=== PATIENT | female | born 1995 | race African-American/Black ===

== ENCOUNTER 2022-07-10 10:21 | Emergency (ER) | payer BC, SELFPAY ==
[2022-07-10 10:32] VITALS: BP 127/88; PULSE 84; RESP 18; TEMP 36.8; O2SAT 100
[2022-07-10 11:13] VITALS: RESP 16; O2SAT 100
[2022-07-10 12:08] LABS: Influenza A QL RT-PCR Negative (Negative); Influenza B QL RT-PCR Negative (Negative); SARS-CoV-2 RNA PCR Negative
--- NOTE | 2022-07-10 12:29 | ED.URI ---
HPI - URI/Sore Throat General Chief Complaint: Upper Respiratory Infection Stated Complaint: shortness of breath, dry cough for 3 days Time Seen by Provider: 07/10/22 11:08 Source: patient Mode of arrival: ambulatory Limitations: no limitations History of Present Illness HPI Narrative: This is a 27-year-old female that presents to the emergency department for cold symptoms present over the last couple of days. Reports chills, fatigue, cough, congestion, and rhinorrhea. Denies fever, or shortness of breath. Related Data Allergies Allergy/AdvReac Type Severity Reaction Status Date / Time No Known Allergies Allergy Verified 07/10/22 11:04 Review of Systems Review of Systems: CONSTITUTIONAL: Reports chills. Denies fever ENT: Reports rhinorrhea, congestion. Denies sore throat, or otalgia. CARDIOVASCULAR: Denies chest pain, or edema. RESPIRATORY: Reports cough All systems reviewed & are unremarkable except as noted in HPI and below PMFSH Past Medical History Medical History (Updated 07/10/22 @ 12:33 by Avis Joiner PA-C) No active medical problems Social History Social History (Updated 07/10/22 @ 12:33 by Avis Joiner PA-C) Substance use: never Exam Narrative: GENERAL: Well-appearing, well-nourished, and in no acute distress. HEAD: Normocephalic, atraumatic. EYES: EOMI. ENT: Nares clear, no rhinorrhea or epistaxis. Mucous membranes moist. Oropharynx without tonsillar hypertrophy exudate or other lesions. Right TM pearly banda non-bulging. Left sided cerumen impaction NECK: Supple. No adenopathy or masses. CHEST: Clear to auscultation. No respiratory distress. No wheezes rales or rhonchi HEART: Regular rate and rhythm. No murmur heard. Normal peripheral pulses. EXTREMITIES: Normal range of motion. No edema. SKIN: Warm, dry, no rash. NEURO: No focal deficits. Alert and oriented x3. PSYCH: Normal mood and affect Course Vital Signs Vital signs: Vital Signs Temperature 98.3 F 07/10/22 10:32 Pulse Rate 84 07/10/22 10:32 Respiratory Rate 18 07/10/22 10:32 Blood Pressure 127/88 07/10/22 10:32 Pulse Oximetry 100 07/10/22 10:32 Oxygen Delivery Room Air 07/10/22 10:32 Temperature 98.3 F 07/10/22 10:32 Pulse Rate 84 07/10/22 10:32 Respiratory Rate 16 07/10/22 11:13 Blood Pressure 127/88 07/10/22 10:32 Pulse Oximetry 100 07/10/22 11:13 Oxygen Delivery Room Air 07/10/22 11:17 MDM - URI/Sore Throat MDM Narrative Medical decision making narrative: Patient presents to the emergency department for cold symptoms ongoing over the last couple of days. Reporting chills, fatigue, and dry cough. She is afebrile and nontoxic-appearing. Lungs are clear on exam. Oxygen saturation is 100% on room air. Influenza and COVID screens are negative. She was instructed on continued care of viral infection. She is to follow-up with her primary care provider. She was given warnings to return to the ER Differential Diagnosis Differential diagnosis: Likely upper respiratory infection, sinusitis, viral infection, bronchitis, influenza and other (covid) Lab Data Attestation: I reviewed the patient's lab results. Labs: Lab Results 07/10/22 Range/Units 11:24 Influenza A (RT-PCR) Negative (Negative) Influenza B (RT-PCR) Negative (Negative) SARS-CoV-2 RNA (RT-PCR) Negative Critical Care Time Critical Care Time Critical Care Time: No Discharge Plan Discharge Clinical Impression: Viral infection Patient Disposition: Home, Self-Care Condition: Stable Instructions: Cold Symptoms (ED) Additional Instructions: Return to the emergency department for worsening symptoms, or any other concerns Remain well-hydrated, get plenty of rest, no work or school for several days. Take Tylenol or Motrin [id number] for pain as needed. Flonase for nasal congestion. Zyrtec for runny nose. Lozenges or Chloraseptic spray for sore throat. Follow up with primary
== END 2022-07-10 12:49 | disposition home or self-care (01) ==
PROVIDERS: Emergency Provider Physician Assistant; PCP Internal Medicine
DX: B34.9 Viral infection, unspecified (principal); Z20.822 Contact with and (suspected) exposure to COVID-19
CPT/HCPCS: 87636; 99283

== ENCOUNTER 2022-12-29 18:05 | Emergency (ER) | payer SELFPAY ==
[2022-12-29 18:20] VITALS: BP 139/64; PULSE 83; RESP 16; TEMP 36.9; O2SAT 99
--- NOTE | 2022-12-29 18:33 | ED.SKABFB ---
HPI - Skin/Abscess/Foreign Bdy General Chief complaint: Skin/Abscess/Foreign Body Stated complaint: Rash Time Seen by Provider: 12/29/22 18:33 Source: patient Mode of arrival: ambulatory Limitations: no limitations History of Present Illness HPI narrative: 27-year-old female presents with complaint of brown circular lesion to right posterior shoulder. Patient reports that yesterday while driving in her car she felt a bump there and thought it was a bug bite because it was itchy. Was itching it while she was driving. Later when she got home and took a shower the area was burning while in the shower. Woke up this morning with a brown color to the circular lesion. Reports that the area is burning . All systems reviewed and negative except as noted above. Related Data Allergies Allergy/AdvReac Type Severity Reaction Status Date / Time No Known Allergies Allergy Verified 12/29/22 18:26 Review of Systems Review of Systems: CONSTITUTIONAL: Denies fever, chills, or sweats. EYES: Denies visual changes, redness, or discharge. ENT: Denies rhinorrhea, congestion, sore throat, or otalgia. CARDIOVASCULAR: Denies chest pain, palpitations, or edema. RESPIRATORY: Denies cough or dyspnea. GASTROINTESTINAL: Denies abdominal pain, nausea, vomiting, or diarrhea. GENITOURINARY: Denies dysuria or hematuria. SKIN: Denies rash or itching. Reports lesion to right posterior shoulder. MUSCULOSKELETAL: Denies back pain, joint pain, or myalgia. NEUROLOGIC: Denies headache, numbness, or weakness. PSYCHIATRIC: Denies anxiety or depression. All other systems reviewed are negative, except as documented in HPI. PMFSH Past Medical History Medical History (Updated 12/29/22 @ 18:40 by Patricia Landis NP) No active medical problems Social History Social History (Updated 07/10/22 @ 12:33 by Avis Joiner PA-C) Substance use: never Comments At time of signature, agree with nursing past medical, surgical, social and family history. There is no relevant family history pertinent to the presenting complaint. Exam Narrative: GENERAL: This is a well-nourished, well-developed patient, in no apparent distress. HEAD: normocephalic, atraumatic. EYES: PERRL. Sclera clear/white. Vision is grossly intact. EARS: External ears normal NOSE: External nose normal NECK: Neck supple, non-tender without lymphadenopathy, masses or thyromegaly. CARDIOVASCULAR: Regular rate and rhythm without murmurs, gallops, or rubs. RESPIRATORY: Clear to auscultation. Breath sounds equal bilaterally. No wheezes, rales, or rhonchi. SKIN: warm, Dry, intact with no suspicious rash, good texture and turgor. there is a scab to right posterior shoulder approximately 2 cm diameter with mild surrounding erythema. No necrosis. No fluctuance or drainage. NEURO: awake, alert, and oriented to person, place and time. There were no obvious focal neurologic abnormalities. EXTREMITIES: No joint tenderness, effusion, or edema noted. Course Course Level of Care: Express Care Visit Vital Signs Vital signs: Vital Signs Temperature 36.9 C 12/29/22 18:20 Pulse Rate 83 12/29/22 18:20 Respiratory Rate 16 12/29/22 18:20 Blood Pressure 139/64 12/29/22 18:20 Pulse Oximetry 99 12/29/22 18:20 Oxygen Delivery Room Air 12/29/22 18:20 Temperature 36.9 C 12/29/22 18:20 Pulse Rate 83 12/29/22 18:20 Respiratory Rate 16 12/29/22 18:20 Blood Pressure 139/64 12/29/22 18:20 Pulse Oximetry 99 12/29/22 18:20 Oxygen Delivery Room Air 12/29/22 18:20 Reviewed MDM - Skin/Abscess/Foreign Bdy MDM Narrative Medical decision making narrative: Patient is aware of diagnosis, understands and agrees to treatment plan. Anticipatory guidance given. Patient agrees to follow-up as directed and is aware of reasons to seek care at the emergency department. Portions of this record may have been created with voice recognition software pt has
== END 2022-12-29 18:45 | disposition home or self-care (01) ==
PROVIDERS: Emergency Provider Nurse Practitioner Family; PCP Internal Medicine
DX: S40.211A Abrasion of right shoulder, initial encounter (principal); X58.XXXA Exposure to other specified factors, initial encounter
CPT/HCPCS: 99213; G0463

== ENCOUNTER 2023-01-07 14:10 | Emergency (ER) | payer SELFPAY ==
[2023-01-07] VITALS (12 sets, daily range): BP systolic 116–153; BP diastolic 66–99; PULSE 68–121; RESP 13–19; TEMP 36.9; O2SAT 100
--- NOTE | ~2023-01-07 | CT_ITS ---
EXAMINATION: CT brain wo con DATE: 01/07/2023 15:08 INDICATION: Head injury one day prior with loss of consciousness and now with dizziness TECHNIQUE: Computed tomography (CT) of the head was performed without intravenous contrast. Sagittal and coronal reconstructions were performed. The mA was adjusted according to patient size. Iterative reconstruction technique was employed. The dose-length product was 529.67 mGy-cm. COMPARISON: None FINDINGS: No fracture. No acute intracranial hemorrhage, acute infarction or abnormal extra axial fluid collect ion. Ventricles are normal and symmetric. No mass/mass effect. The orbits, paranasal sinuses and mast oid air cells are normal. IMPRESSION: 1. Normal head CT. Reviewed, dictated and finalized at location A. IMPRESSION: 1. Normal head CT.
--- NOTE | 2023-01-07 14:22 | ECG_ITS ---
Measurements Intervals [place] Rate: 90 P: 56 [place]: 137 QRS: 24 QRSD: 86 T: 14 QT: 353 QTc: 433 Interpretive Statements SINUS RHYTHM NONSPECIFIC T-WAVE ABNORMALITY NO PREVIOUS ECG AVAILABLE FOR COMPARISON Electronically Signed On 01-07-2023 14:56:21 CDT by Whit Soto M.D.
[2023-01-07] MEDS: SODIUM CHLORIDE 0.9% IV 1,000 ML 999 ML IV CONT (14:41)
[2023-01-07 14:50] LABS: Basophils Absolute Auto 0.1 K/mm3 (0.0-0.1); Eosinophils Absolute Auto 0.1 K/mm3 (0-0.3); Eosinophils Percent Auto 1.2 % (0-4.4); Hematocrit 35.3 % (37.0-47.0); Hemoglobin 10.5 g/dL (12.0-15.0); Immature Granulocyte Absolute 0.01 K/mm3 (0.00-0.031); Immature Granulocyte Percent A 0.2 % (0-0.5); Lymphocytes Absolute Auto 1.44 K/mm3 (0.9-3.2); Lymphocytes Percent Auto 27.9 % (18.3-44.2); Mean Corpuscular HGB Conc 29.7 g/dl (32-36); Mean Corpuscular Hemoglobin 25.6 pg (26-34); Mean Corpuscular Volume 86.1 fl (80-100); Mean Platelet Volume 10.2 fl (7.4-10.4); Monocytes Absolute Auto 0.3 K/mm3 (0.1-0.6); Monocytes Percent Auto 6.2 % (2.6-8.5); Neutrophils Absolute Auto 3.3 K/mm3 (1.3-6.7); Neutrophils Percent Auto 63.5 % (45.5-73.1); Platelet Count Result 304 k/mm3 (150-375); Red Cell Distribution Width 16.6 % (11.5-14.5); White Blood Count 5.2 K/mm3 (4.5-10.0)
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
[2023-01-07 14:57] LABS: Alanine Aminotransferase 17 U/L (6-35); Albumin Level 4.3 g/dL (3.5-5.1); Alkaline Phosphatase 84 U/L (38-126); Anion Gap 10 mmol/L (8-16); Aspartate Amino Transferase 23 U/L (14-36); Bilirubin,Total 0.3 mg/dL (0.2-1.3); Blood Urea Nitrogen 6 mg/dL (7-17); Calcium 8.8 mg/dL (8.4-10.2); Carbon Dioxide 24 mmol/L (22-30); Chloride 103 mmol/L (98-107); Estimated CRCL calculation 102 ml/min; Estimated Glomerular Filt Rate > 60; Glucose 174 mg/dL (65-110); Potassium 3.3 mmol/L (3.4-5.0); Sodium 137 mmol/L (137-145)
--- NOTE | 2023-01-07 14:58 | PC.NURSE ---
pt to CT via stretcher at this time
[2023-01-07] MEDS: ONDANSETRON INJ 4 MG/2 ML VIAL IV PUSH (15:09)
[2023-01-07 18:17] LABS: Barbiturate Screen Urine Negative (Negative); Benzodiazepines Screen Urine Negative (Negative)
[2023-01-07 18:23] LABS: Amphetamine Screen Urine Negative (Negative); Cannabinoid Screen Urine Positive (Negative); Cocaine Screen Urine Negative (Negative); Methadone Screen Urine Negative (Negative); Opiate Screen Urine Negative (Negative); Phencyclidine Screen Urine Negative (Negative)
== END 2023-01-07 17:20 | disposition home or self-care (01) ==
PROVIDERS: Emergency Medicine; Emergency Provider Emergency Medicine; PCP Internal Medicine
DX: R55 Syncope and collapse (principal); S09.90XA Unspecified injury of head, initial encounter; R94.31 Abnormal electrocardiogram [ECG] [EKG]; W18.39XA Other fall on same level, initial encounter
CPT/HCPCS: 36415; 70450; 80053; 80307; 81025; 85025; 93005; 96361; 96374; 99284; J2405; J7030

== ENCOUNTER 2023-07-01 19:26 | Emergency (ER) | payer SELFPAY ==
[2023-07-01 19:43] VITALS: BP 154/85; PULSE 112; RESP 20; TEMP 36.9; O2SAT 100
--- NOTE | 2023-07-01 21:04 | ED.GENADULT ---
[facility] - General Adult General Chief complaint: Dental/Oral Stated complaint: left sided mouth pain Time Seen by Provider: 07/01/23 20:27 Source: patient Mode of arrival: ambulatory Limitations: no limitations History of Present Illness HPI narrative: This is a 28-year-old female who presents to the ED with chief complaint of dental pain for the past month and worse today. Reports it is in the left lower area of the mouth. Denies any trismus, drooling, fevers, chills. She has tried ibuprofen with minimal relief and has not been able to get into a dentist. Related Data Allergies Allergy/AdvReac Type Severity Reaction Status Date / Time No Known Allergies Allergy Verified 07/01/23 20:50 Review of Systems Review of Systems: All systems as dictated in [facility] Past Medical History Medical History (Updated 07/02/23 @ 00:00 by Eboni Bee) No active medical problems Social History Social History (Updated 07/10/22 @ 12:33 by Avis Joiner PA-C) Substance use: never Exam Narrative: GENERAL: Well-appearing, well-nourished, and in no acute distress. HEAD: Normocephalic, atraumatic. EYES: PERRLA and EOMI. ENT: Nares clear, no rhinorrhea or epistaxis. Mucous membranes moist. Oropharynx without tonsillar hypertrophy exudate or other lesions. NECK: Supple. No adenopathy or masses. CHEST: No respiratory distress. Clear to auscultation. No wheezes rales or rhonchi HEART: Regular rate and rhythm. No murmur heard. Normal peripheral pulses. ABDOMEN: Soft, nontender, nondistended, normal active bowel sounds. MSK: Normal range of motion. No edema. SKIN: Warm, dry, no rash. NEURO: Alert and oriented x3. No focal deficits. PSYCH: Normal mood and affect. Course Vital Signs Vital signs: Vital Signs Temperature 98.5 F 07/01/23 19:43 Pulse Rate 112 H 07/01/23 19:43 Respiratory Rate 20 07/01/23 19:43 Blood Pressure 154/85 H 07/01/23 19:43 Pulse Oximetry 100 07/01/23 19:43 Oxygen Delivery Room Air 07/01/23 19:43 Temperature 98.5 F 07/01/23 19:43 Pulse Rate 112 H 07/01/23 19:43 Respiratory Rate 20 07/01/23 19:43 Blood Pressure 154/85 H 07/01/23 19:43 Pulse Oximetry 100 07/01/23 19:43 Oxygen Delivery Room Air 07/01/23 19:43 Medical Decision Making MDM Narrative Medical decision making narrative: This is a 28-year-old female who presents to the ED with chief complaint of left lower dental pain ongoing for the past month worse today. Vitals show initial slight tachycardia and elevated blood pressure, likely due to pain. She is tearful on exam. There is evidence of impacted left lower molar. No palpable or discrete abscess identified. She will be given short course of pain meds and antibiotics to cover possible infection. Dental referral given. Pt will be discharged in stable condition. Return precautions given and supportive measures discussed. Pt is understanding and agreeable with plan for discharge and follow-up with PCP/dentist Vital Signs Vital Signs: Vital Signs Temperature 98.5 F 07/01/23 19:43 Pulse Rate 112 H 07/01/23 19:43 Respiratory Rate 20 07/01/23 19:43 Blood Pressure 154/85 H 07/01/23 19:43 Pulse Oximetry 100 07/01/23 19:43 Oxygen Delivery Room Air 07/01/23 19:43 Temperature 98.5 F 07/01/23 19:43 Pulse Rate 112 H 07/01/23 19:43 Respiratory Rate 20 07/01/23 19:43 Blood Pressure 154/85 H 07/01/23 19:43 Pulse Oximetry 100 07/01/23 19:43 Oxygen Delivery Room Air 07/01/23 19:43 Discharge Plan Discharge Clinical Impression: Dental impaction Patient Disposition: Home, Self-Care Condition: Stable Instructions: Antibiotic Form Additional Instructions: Exam today shows impacted left lower molar. Please follow-up closely with dentist to have this treated. Use antibiotics in case there is infection causing increased pain. Tylenol and ibuprofen regularly for pain. Use [place] for breakt
[2023-07-01] MEDS: ACETAMINOPHEN 500 MG TABLET 1000 MG PO (21:35)
[2023-07-01] MEDS: KETOROLAC 30 MG/ML VIAL (*BKC) IM (21:35)
[2023-07-01] MEDS: HYDROcodone/acetaminophen (*CRX) 5-325 MG TABLET 1 TAB PO (22:02)
== END 2023-07-01 22:03 | disposition home or self-care (01) ==
PROVIDERS: Emergency Provider Physician Assistant; PCP Internal Medicine
DX: K01.1 Impacted teeth (principal)
CPT/HCPCS: 96372; 99283; A9270; J1885

== ENCOUNTER 2024-07-02 12:40 | Emergency (ER) | payer OTHER, SELFPAY ==
[2024-07-02 12:52] VITALS: BP 139/69; PULSE 108; RESP 16; TEMP 37.6; O2SAT 99
[2024-07-02 13:25] LABS: EDCOVIDSCREEN Negative (Negative); EDINFLUASCREEN Negative (Negative); EDINFLUBSCREEN Negative (Negative)
--- NOTE | 2024-07-02 13:35 | ED.URI ---
HPI - URI/Sore Throat General Chief Complaint: Upper Respiratory Infection Stated Complaint: chills,[place],bodyaches Time Seen by Provider: 07/02/24 13:26 Source: patient and RN notes reviewed Mode of arrival: ambulatory Limitations: no limitations History of Present Illness HPI Narrative: Patient presents today complaining of a headache, chills, body aches, rhinorrhea, and fever up to 102. Symptoms began last night. Denies cough or shortness of breath. 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 Currently rates her headache /. She has tried no qlyo-[id number] treatment prior to arrival. Related Data Allergies Allergy/AdvReac Type Severity Reaction Status Date / Time No Known Allergies Allergy Verified 07/02/24 12:46 Review of Systems Review of Systems: CONSTITUTIONAL: Denies fever, or sweats.+ body aches, chills EYES: Denies visual changes, redness, or discharge. ENT: Denies congestion, sore throat, or otalgia.+ headache CARDIOVASCULAR: Denies chest pain, palpitations, or edema. RESPIRATORY: Denies cough or dyspnea. GASTROINTESTINAL: Denies abdominal pain, nausea, vomiting, or diarrhea. GENITOURINARY: Denies dysuria or hematuria. SKIN: Denies rash, itching, or wounds. MUSCULOSKELETAL: Denies back pain, joint pain, or myalgia. NEUROLOGIC: Denies numbness, tingling, or weakness.+ rhinorrhea PSYCH: Denies depression or anxiety. [facility] Past Medical History Medical History No active medical problems Social History Social History Substance use: never Comments At time of signature, I have reviewed and agree with nursing past medical, surgical, social and family history unless otherwise noted. Please see nursing chart for further information. There is no relevant family history pertinent to the presenting complaint Exam Narrative: GENERAL: Mildly ill-appearing, well-nourished, and in no acute distress. HEAD: Normocephalic, atraumatic. EYES: EOMI. No redness or drainage. Conjunctivae normal. ENT: Mucous membranes pink and moist. Nares congested with rhinorrhea. TMs normal bilaterally. Throat normal. Uvula midline. NECK: Normal AROM. Supple. No lymphadenopathy. CHEST: No respiratory distress. Clear to auscultation. HEART: Regular rate and rhythm. No murmur appreciated. EXTREMITIES: Normal range of motion. No edema. SKIN: Warm, dry, no rash. Capillary refill normal. Normal skin turgor. NEURO: No focal deficits. Alert and oriented x3. Gait steady. PSYCH: Normal affect. No signs of depression or anxiety. Course Course Level of Care: Express Care Visit Vital Signs Vital signs: Vital Signs Temperature 99.6 F 07/02/24 12:52 Pulse Rate 108 H 07/02/24 12:52 Respiratory Rate 16 07/02/24 12:52 Blood Pressure 139/69 07/02/24 12:52 Pulse Oximetry 99 07/02/24 12:52 Oxygen Delivery Room Air 07/02/24 12:52 Temperature 99.6 F 07/02/24 12:52 Pulse Rate 108 H 07/02/24 12:52 Respiratory Rate 16 07/02/24 12:52 Blood Pressure 139/69 07/02/24 12:52 Pulse Oximetry 99 07/02/24 12:52 Oxygen Delivery Room Air 07/02/24 12:52 Reviewed MDM - URI/Sore Throat MDM Narrative Medical decision making narrative: COVID and influenza negative. Will treat patient with some Tamiflu given exposure and current symptoms and fever. Discussed [id number] medication use and duration of illness. Anticipatory guidance given. Differential Diagnosis Differential diagnosis: Likely upper respiratory infection, viral infection, influenza and other (COVID) Lab Data Attestation: I reviewed the patient's lab results. Labs: Lab Results 07/02/24 Range/Units 13:23 POC Influenza A Ag Negative (Negative) POC Influenza B Ag Negative (Negative) POC SARS CoV-2 Ag Negative (Negative) Critical Care Time Critical Care Time Critical Care Time: No Discharge Plan Discharge Clinical Impression: Flu-like symptoms Patient Disposition: Home, Self-Care Condition: Stable Instructions: Influenza (DC) Additional Instructions: Your influenza and COVID swabs are negative today. A prescription for Tamiflu has been sent to pharmacy based on your symptoms. Please take as directed. For your symptoms, you can try some Tylenol, ibuprofen, or Aleve for your headache, body aches, and fever. You can also try an antihistamine such as Zyrtec, Claritin, or Mattie for your runny nose. Follow-up with your PCP next week if symptoms persist. Go to the ER immediately if you develop shortness of breath, chest pain, persistent fever. Your blood pressure was elevated above 120/80 today at Urgent Care. This puts you above the threshold for follow up. Please schedule a followup visit with your personal physician as soon as possible, for further evaluation and treatment. Even blood pressure exceeding 120/80 may indicate pre-hypertension. Patient Language: Slovenian Prescriptions: New oseltamivir [Tamiflu] 75 mg capsule 75 mg PO Q12H 5 Days Qty: 10 0RF Follow-up/Referrals: PHYSICIAN,ONLINE ACTIVIST [Primary Care Provider] - Stand Alone Forms: Work/School Release IP Time of Disposition: 13:41
== END 2024-07-02 13:43 | disposition home or self-care (01) ==
PROVIDERS: Emergency Provider Nurse Practitioner
DX: J11.1 Influenza due to unidentified influenza virus with other respiratory manifestations (principal); Z20.822 Contact with and (suspected) exposure to COVID-19
CPT/HCPCS: 87426; 87804; 99213; G0463